=== PATIENT | female | born 1990 | race Caucasian/White ===

== ENCOUNTER 2017-11-19 03:15 | Emergency (ER) | payer MEDICAID, SELFPAY ==
[2017-11-19 03:15] VITALS: BP 124/89; PULSE 78; RESP 18; TEMP 36.4; O2SAT 98; BMI 25.7
--- NOTE | 2017-11-19 03:31 | CT_ITS ---
STUDY: CT CERVICAL SPINE WITHOUT CONTRAST REASON FOR EXAM: Female, 27 years old. Trauma RADIATION DOSAGE (If Supplied By Facility): CTDIvol = ( 14.9 ) mGy, DLP = ( 300.41 ) mGycm TECHNIQUE: High resolution transaxial imaging was performed without contrast material. Sagittal and coronal images were reconstructed. Individualized dose optimization techniques were used for this CT. COMPARISON: None FINDINGS: Normal craniovertebral junction. Normal anterior atlantoaxial articulation. Normal odontoid process. Normal cervical lordosis. Normal vertebral bodies and posterior osseous elements. C2-3: Normal endplates. Normal disc height and morphology. Normal central canal and intervertebral neuroforamina. C3-4: Normal endplates. Normal disc height and morphology. Normal central canal and intervertebral neuroforamina. C4-5: Normal endplates. Normal disc height and morphology. Normal central canal and intervertebral neuroforamina. C5-6: Normal endplates. Normal disc height and morphology. Normal central canal and intervertebral neuroforamina. C6-7: Normal endplates. Normal disc height and morphology. Normal central canal and intervertebral neuroforamina. C7-T1: Normal endplates. Normal disc height and morphology. Normal central canal and intervertebral neuroforamina. Normal visualized soft tissue structures. CT/Spine Cervical without Contras IMPRESSION: Normal unenhanced CT examination of the cervical spine. Electronically Signed: Chema Mejia MD at 4:44 EDT , Service support ,
--- NOTE | 2017-11-19 03:31 | CT_ITS ---
STUDY: CT BRAIN WITHOUT CONTRAST REASON FOR EXAM: Female, 27 years old. Trauma RADIATION DOSAGE (If Supplied By Facility): CTDIvol = ( 44.99 ) mGy, DLP = ( 745.49 ) mGycm TECHNIQUE: Transaxial CT imaging of the brain was performed without administration of intravenous contrast material. Individualized dose optimization techniques were used for this CT. COMPARISON: None. FINDINGS: Normal soft tissue structures. Normal calvarium. Normal size ventricles and extra-axial spaces for the patient's age. Normal white matter tracts of the cerebral hemispheres. Normal basal ganglia and thalami. Normal brainstem. Normal cerebellum. There is no intracranial hemorrhage. There are no findings of an acute ischemic infarction. Normal visualized paranasal sinuses. CT/Brain/Head without Contrast IMPRESSION: Normal unenhanced CT scan of the brain. Electronically Signed: Chema Mejia MD at 4:40 EDT , Service support ,
--- NOTE | 2017-11-19 05:05 | ED.VISSUMM ---
- ER Visit Summary Date of Service: 11/19/17 Chief Complaint: Fall History of Present Illness: The patient is a 27 F who presents after a fall. She was intoxicated. She was trying to climb a fence. She fell backwards and hit her head on concrete. She denies loss of consciousness. She was able to get up on her own and ambulate without difficulty. She is also complaining of some neck pain. She denies chest pain abdominal pain back pain or injury to extremities. She does complain of a headache. She is not on any daily medications. She is not anticoagulated. Physical Examination: Afebrile vitals are stable GCS of 15 with no focal or lateralizing neurological deficits Patient does have midline cervical tenderness Patient does appear clinically intoxicated Heart regular rate and rhythm Lungs are clear Abdomen soft Active full range of motion ?4 Test Results: CT of the head and C-spine are normal Emergency Department Course and Treatment: CT of the head and cervical spine are unremarkable. On reevaluation she denies any midline spinal tenderness she only complains of some left-sided paraspinal tenderness. At this time I do feel she is safe for discharge with family members. Treatment Plan: [] Disposition: Discharge Impression: Closed head injury Cervical sprain Alcohol intoxication This note was generated with [employer] dictation software. It may contain incorrect words, spelling, and punctuation that were not noted in review of the chart prior to signing ED Disposition - Plan for ED Patient: Chief Complaint: Fall Referrals: Care Physician,No Primary [Primary Care Provider] -
--- NOTE | 2017-11-19 05:07 | ED.DEP ---
ED Disposition - Plan for ED Patient: Chief Complaint: Fall Instructions: ED Mechanical Fall, ED Alcohol Intoxication, ED Head Injury Closed, ED Sprain Strain Neck Referrals: Care Physician,No Primary [Primary Care Provider] -
[2017-11-19 05:13] VITALS: BP 94/56; PULSE 77; RESP 18; O2SAT 99
== END 2017-11-19 05:13 | disposition home or self-care (01) ==
PROVIDERS: Emergency Provider Emergency Medicine
DX: S09.90XA Unspecified injury of head, initial encounter (principal); S13.4XXA Sprain of ligaments of cervical spine, initial encounter; W17.89XA Other fall from one level to another, initial encounter; Y93.9 Activity, unspecified; Y92.9 Unspecified place or not applicable; Y99.9 Unspecified external cause status; F10.129 Alcohol abuse with intoxication, unspecified
CPT/HCPCS: 70450; 72125; 99282